=== PATIENT | female | born 1990 | race Caucasian/White ===

== ENCOUNTER 2017-02-19 10:14 | Outpatient (CLI) | payer MEDICAID, OTHER | END 2017-02-19 10:15 | disposition home or self-care (01) | DX: K92.1 Melena (principal); R10.84 Generalized abdominal pain ==

== ENCOUNTER 2017-04-26 11:09 | Outpatient (CLI) | payer OTHER ==
[2017-04-26 13:58] LABS: BILIRUBIN,DIRECT 0.1 mg/dL (0.1-0.5); TOTAL PROTEIN 7.9 g/dL (6.7-8.2)
== END 2017-04-26 11:10 | disposition home or self-care (01) ==
LOC: LAB.N 11:09
PROVIDERS: ATTEND Physician Assistant Medical
DX: R17 Unspecified jaundice (principal)
CPT/HCPCS: 36415; 80076

== ENCOUNTER 2017-11-15 08:00 | Outpatient (CLI) | payer OTHER | END 2017-11-15 23:59 | disposition home or self-care (01) | LOC: LAB.R 08:00 | PROVIDERS: ATTEND Registered Nurse | DX: Z11.3 Encounter for screening for infections with a predominantly sexual mode of transmission (principal) | CPT/HCPCS: 87491; 87591 ==

== ENCOUNTER 2017-12-29 09:48 | Outpatient (CLI) | payer OTHER ==
[2017-12-29 10:07] LABS: BASOPHILS % (AUTO) 0.2 %; EOSINOPHILS # (AUTO) 0.1 10^3/uL (0.0-0.7); EOSINOPHILS % (AUTO) 0.9 %; HGB - HEMOGLOBIN 13.2 g/dL (12.0-16.0); LYMPHOCYTES # (AUTO) 1.9 10^3/uL (1.5-3.5); LYMPHOCYTES % (AUTO) 29.7 %; MEAN CORPUSCULAR HEMOGLOBIN 31.1 pg (27.0-31.0); MEAN CORPUSCULAR HGB CONC 35.2 g/dL (32.0-36.0); MEAN CORPUSCULAR VOLUME 88.2 fL (81.0-99.0); MEAN PLATELET VOLUME 8.1 fL (7.9-10.8); MONOCYTES # (AUTO) 0.3 10^3/uL (0.0-1.0); MONOCYTES % (AUTO) 5.3 %; NEUTROPHILS # (AUTO) 4.2 10^3/uL (1.5-6.6); NEUTROPHILS % (AUTO) 63.9 %; PLT - PLATELET COUNT 204 10^3/uL (130-450); RED BLOOD COUNT 4.26 10^6/uL (4.20-5.40); RED CELL DISTRIBUTION WIDTH 13.4 % (12.0-15.0); WHITE BLOOD COUNT 6.5 x10^3/uL (4.8-10.8)
[2017-12-29 10:24] LABS: CHOL/HDL RATIO 3.7 (<4.4); CHOLESTEROL 150 mg/dL; GLUCOSE 95 mg/dL (70-100); HDL CHOLESTEROL 41 mg/dL; LDL CHOLESTEROL,CALCULATED 75 mg/dL; LDL/HDL RATIO 1.8 (<4.4); VLDL CHOLESTEROL 34 mg/dL
[2017-12-29 10:25] LABS: HB2 TOTAL 14.2 g/dL; HEMOGLOBIN A1C 0.44 g/dL
== END 2017-12-29 09:49 | disposition home or self-care (01) ==
LOC: LAB 09:48
PROVIDERS: ATTEND Registered Nurse
DX: N94.89 Other specified conditions associated with female genital organs and menstrual cycle (principal)
CPT/HCPCS: 36415; 80061; 82947; 83036; 83721; 84443; 85025

== ENCOUNTER 2018-01-10 20:12 | Outpatient (CLI) | payer OTHER ==
--- NOTE | 2018-01-11 12:30 | Ultrasound Report ---
PELVIS ULTRASOUND: 01/10/2018. COMPARISON: No comparison. INDICATIONS: Pelvic and perineal pain. TECHNIQUE: Sonographic evaluation of the pelvis was performed using transabdominal and endovaginal obtained. Transabdominal pelvic ultrasound performed for global evaluation. Real-time scanning performed and static images obtained. FINDINGS: Uterus 9.4 x 5.3 x 4.5 cm. 117 mL Uterus appears normal. There is a small amount of fluid in the cervical canal. Cervix otherwise unremarkable. No free fluid in the pelvis. Right ovary 4.5 x 2.9 x 2.8 cm. 19 mL. Normal appearance. Left ovary 3.9 x 2.0, x 1.8 cm. 7 mL. Normal appearance. IMPRESSION: ESSENTIALLY NEGATIVE PELVIS ULTRASOUND. TD: 01/11/2018 12:29 MTDD
== END 2018-01-10 20:13 | disposition home or self-care (01) ==
LOC: DI 20:12
PROVIDERS: ATTEND Registered Nurse
DX: R10.2 Pelvic and perineal pain (principal)
CPT/HCPCS: 76830; 76856

== ENCOUNTER 2018-01-22 17:19 | Outpatient (CLI) | payer OTHER ==
[2018-01-22 19:08] LABS: PROLACTIN 9.91 ng/mL
[2018-01-22 19:30] LABS: FOLLICLE STIMULATING HORMONE 7.09 mIU/mL
[2018-01-22 19:31] LABS: LUTEINIZING HORMONE 8.19 mIU/mL
[2018-01-23 10:16] LABS: ESTRADIOL 39 pg/mL
[2018-01-24 15:50] LABS: DHEA SULFATE 273 mcg/dL (18-391)
== END 2018-01-22 17:20 | disposition home or self-care (01) ==
LOC: LAB 17:19
PROVIDERS: ATTEND Registered Nurse
DX: N91.4 Secondary oligomenorrhea (principal)
CPT/HCPCS: 36415; 81599; 82627; 82670; 83001; 83002; 84146; 84402; 84403

== ENCOUNTER 2021-06-18 08:00 | Outpatient (CLI) | payer OTHER | END 2021-06-18 23:59 | disposition home or self-care (01) | LOC: LAB.N 08:00 | PROVIDERS: ATTEND Physician Assistant Medical | DX: N30.00 Acute cystitis without hematuria (principal) | CPT/HCPCS: 87086 ==

== ENCOUNTER 2021-06-27 08:00 | Outpatient (CLI) | payer OTHER ==
[2021-06-27 22:43] LABS: BACTERIAL VAGINOSIS DNA NEGATIVE (NEGATIVE); CANDIDA GLABRATA DNA NEGATIVE (NEGATIVE); CANDIDA GROUP DNA NEGATIVE (NEGATIVE); CANDIDA KRUSEI DNA NEGATIVE (NEGATIVE); TRICHOMONAS VAGINALIS DNA NEGATIVE (NEGATIVE)
== END 2021-06-27 23:59 | disposition home or self-care (01) ==
LOC: LAB.N 08:00
PROVIDERS: ATTEND Physician Assistant Medical
DX: N30.00 Acute cystitis without hematuria (principal)
CPT/HCPCS: 87086; 87661; 87801

== ENCOUNTER 2021-06-28 18:40 | Emergency (ER) | payer OTHER ==
[2021-06-28 19:29] LABS: BILIRUBIN,URINE NEGATIVE (NEGATIVE); GLUCOSE, URINE (UA) NEGATIVE (NEGATIVE); KETONES,URINE (UA) NEGATIVE (NEGATIVE); LEUKOCYTE ESTERASE, URINE NEGATIVE (NEGATIVE); NITRITE,URINE NEGATIVE (NEGATIVE); OCCULT BLOOD,URINE NEGATIVE (NEGATIVE); PROTEIN,URINE NEGATIVE (NEGATIVE); UROBILINOGEN,URINE 0.2 (NORMAL) E.U./dL (NORMAL)
[2021-06-28 19:31] LABS: CLARITY,URINE CLEAR (CLEAR); HCG UR QUAL NEGATIVE
--- NOTE | 2021-06-28 19:58 | ED Physician Documentation ---
History of Present Illness - Stated complaint Stated Complaint: UTI SYMPTOMS - Chief complaint Chief Complaint: Fever - Additonal information Additional information: The patient presents with concerns regarding a urinary tract infection. 6 days ago she was seen by her PCP because she was having discomfort with urination. A culture obtained at that time showed that she had an infection with E. coli and she took a 5-day course of Macrobid. However, yesterday evening she developed a low-grade fever and has intermittently felt as though her heart is racing. Additionally she has had a mild right flank pain. She continues to have symp toms consistent with urgency and she contacted her PCP and they called in a prescription for ciprofloxacin. However, she did not start this as in years past she had nausea and vomiting when taking the medication. Review of Systems Constitutional: reports: Fever, Chills, Sweats Cardiac: reports: Palpitations : reports: Dysuria, Frequency, Other (Right flank pain) Musculoskeletal: denies: Neck pain PD PAST MEDICAL HISTORY - Past Medical History Past Medical History: Yes Cardiovascular: None Respiratory: None Neuro: Migraines Endocrine/Autoimmune: None GI: None REVENUE CYCLE ADMINISTRATOR: None : None HEENT: None Psych: None Musculoskeletal: None Derm: None - Past Surgical History Past Surgical History: Yes /REVENUE CYCLE ADMINISTRATOR: section - Present Medications Home Medications: Ambulatory Orders Medication Instructions Recorded Confirmed Amox/Clav 875/125 [Augmentin 1 tablet PO Q12H 10 Days #20 tablet 06/28/21 875/125 Tab] - Allergies Allergies/Adverse Reactions: Allergies Allergy/AdvReac Type Severity Reaction Status Date / Time No Known Drug Allergies Allergy Verified 06/28/21 18:50 - Social History Does the pt smoke?: No Smoking Status: Never smoker Does the pt drink ETOH?: No Does the pt have substance abuse?: No - Immunizations Immunizations are current?: Yes PD ED PE NORMAL - General General: No acute distress - HEENT HEENT: PERRL - Neck Neck: Supple, no meningeal sign - Cardiac Cardiac: RRR, Other (Tachycardic) - Respiratory Respiratory: No respiratory distress, Clear bilaterally - Abdomen Abdomen: Normal bowel sounds, Soft, Non tender, Non distended, No organomegaly - Female Female : Deferred - Back Back: No CVA TTP - Derm Derm: Normal color, Warm and dry, No rash - Extremities Extremities: No deformity, Normal ROM s pain - Psych Psych: Normal mood Results - Vitals Vitals: Vital Signs - 24 hr 06/28/21 06/28/21 06/28/21 18:50 20:00 21:32 Temperature 38.4 C H Heart Rate 138 H 118 H 108 H Respiratory 20 20 14 Rate Blood Pressure 166/97 H 144/100 H 157/96 H O2 Saturation 100 100 100 06/28/21 06/28/21 06/28/21 22:43 22:50 23:06 Temperature 37.3 C Heart Rate 108 H 98 Respiratory 16 16 15 Rate Blood Pressure 152/93 H 134/98 H O2 Saturation 97 99 Oxygen O2 Source Room air - Labs Labs: Laboratory Tests 06/28/21 06/28/21 06/28/21 19:00 19:48 19:48 WBC 4.0 L RBC 4.37 Hgb 13.5 Hct 38.4 MCV 87.9 MCH 30.9 MCHC 35.2 RDW 12.3 Plt Count 165 MPV 10.3 Neut # (Auto) 2.7 Lymph # (Auto) 0.9 L [place] # (Auto) 0.4 Eos # (Auto) 0.0 Baso # (Auto) 0.0 Absolute Nucleated RBC 0.00 Nucleated RBC % 0.0 Sodium 134 L Potassium 3.7 Chloride 99 L Carbon Dioxide 25 Anion Gap 10.0 BUN 11 Creatinine 1.2 H Estimated GFR (MDRD) 52 L Glucose 116 H Lactic Acid Calcium 9.0 Total Bilirubin 1.2 H AST 30 ALT 37 Alkaline Phosphatase 63 Total Protein 8.1 Albumin 4.3 Globulin 3.8 Albumin/Globulin Ratio 1.1 Urine Color YELLOW Urine Clarity CLEAR Urine pH 7.0 Ur Specific [place] <=1.005 Urine Protein NEGATIVE Urine Glucose (UA) NEGATIVE Urine Ketones NEGATIVE Urine Occult Blood NEGATIVE Urine Nitrite NEGATIVE Urine Bilirubin NEGATIVE Urine Urobilinogen 0.2 (NORMAL) Ur Leukocyte Esterase NEGATIVE Ur Microscopic Review NOT INDICATED Urine Culture Comments NOT INDICATED Urine HCG, Qual NEGATIVE 06/28/21 19:52 WBC RBC Hgb Hct MCV MCH MCHC RDW Plt Count MPV Neut # (Auto) Lymph # (Auto) [place] # (Auto) Eos # (Auto) Baso # (Auto) Absolute Nucleated RBC Nucleated RBC % Sodium Potassium Chloride Carbon Dioxide Anion Gap BUN Creatinine Estimated GFR (MDRD) Glucose Lactic Acid 1.3 Calcium Total Bilirubin AST ALT Alkaline Phosphatase Total Protein Albumin Globulin Albumin/Globulin Ratio Urine Color Urine Clarity Urine pH Ur Specific [place] Urine Protein Urine Glucose (UA) Urine Ketones Urine Occult Blood Urine Nitrite Urine Bilirubin Urine Urobilinogen Ur Leukocyte Esterase Ur Microscopic Review Urine Culture Comments Urine HCG, Qual PD MEDICAL DECISION MAKING - ED course Complexity details: reviewed results, re-evaluated patient, considered differential, d/w patient ED course: The patient's history is consistent with pyelonephritis. She was treated in the emergency department with IV fluids and acetaminophen with improvement in her symptoms.The results of her urine analysis are likely skewed by her recent antibiotic use. Given her intolerance for ciprofloxacin, she was treated in the emergency department with ceftriaxone and was provided a prescription for Augmentin. We reviewed the appropriate use, risks and side effects of these medications. She was encouraged to drink plenty of fluids and alternate OTC antipyretics and analgesics. Additionally, she is to have close follow-up with her PCP and was encouraged to call or return here if her symptoms worsen or if new symptoms were to develop. I did suggest that before she fills the prescription she speak with her PCP and find out if they have sensitivities on the recent urine culture that was done. Unfortunately, I am not able to access these results. Departure - Departure Disposition: 01 Home, Self Care Clinical Impression: Pyelonephritis Condition: Stable Instructions: ED Kidney Infec Female Prescriptions: Amox/Clav 875/125 [Augmentin 875/125 Tab] 1 tablet PO Q12H 10 Days #20 tablet Discharge Date/Time: 06/28/21 23:07
[2021-06-28] MEDS ORDERED: ACETAMINOPHEN 325 MG TABLET PO STA (20:02)
[2021-06-28 20:09] LABS: BASOPHILS % (AUTO) 0.2 %; HCT - HEMATOCRIT 38.4 % (37.0-47.0); HGB - HEMOGLOBIN 13.5 g/dL (12.0-16.0); LYMPHOCYTES # (AUTO) 0.9 10^3/uL (1.5-3.5); LYMPHOCYTES % (AUTO) 21.3 %; MEAN CORPUSCULAR HEMOGLOBIN 30.9 pg (27.0-31.0); MEAN CORPUSCULAR HGB CONC 35.2 g/dL (32.0-36.0); MEAN CORPUSCULAR VOLUME 87.9 fL (81.0-99.0); MEAN PLATELET VOLUME 10.3 fL (7.9-10.8); MONOCYTES # (AUTO) 0.4 10^3/uL (0.0-1.0); MONOCYTES % (AUTO) 10.2 %; NEUTROPHILS # (AUTO) 2.7 10^3/uL (1.5-6.6); NEUTROPHILS % (AUTO) 67.8 %; PLT - PLATELET COUNT 165 10^3/uL (130-450); RED BLOOD COUNT 4.37 10^6/uL (4.20-5.40); RED CELL DISTRIBUTION WIDTH 12.3 % (12.0-15.0)
[2021-06-28 20:13] LABS: ALBUMIN 4.3 g/dL (3.2-5.5); ALBUMIN/GLOBULIN RATIO 1.1 (1.0-2.2); BILIRUBIN,TOTAL 1.2 mg/dL (0.2-1.0); CREATININE 1.2 mg/dL (0.4-1.0); POTASSIUM 3.7 mmol/L (3.5-5.0); TOTAL PROTEIN 8.1 g/dL (6.7-8.2)
[2021-06-28] MEDS ORDERED: cefTRIAXone 1 GM VIAL IM STA (22:35)
[2021-06-28] MEDS ORDERED: LIDOCAINE 1% 2 ML VIAL MC ONE (22:35)
[2021-06-28 23:07] VITALS: BP 134/98
== END 2021-06-28 23:07 | disposition home or self-care (01) ==
LOC: ED 18:40
DX: N12 Tubulo-interstitial nephritis, not specified as acute or chronic (principal); R00.0 Tachycardia, unspecified
CPT/HCPCS: 36415; 80053; 81003; 81025; 83605; 85025; 87040; 96372; 99283; 99284; A9270; 81001; 87086

== ENCOUNTER 2022-05-20 08:00 | Outpatient (CLI) | payer OTHER | END 2022-05-20 23:59 | disposition home or self-care (01) | LOC: LAB.N 08:00 | PROVIDERS: ATTEND Nurse Practitioner | DX: N39.0 Urinary tract infection, site not specified (principal) | CPT/HCPCS: 87086; 87181 ==

== ENCOUNTER 2024-01-24 16:15 | Outpatient (CLI) | payer OTHER ==
[2024-01-24 20:40] LABS: BASOPHILS % (AUTO) 0.1 %; EOSINOPHILS % (AUTO) 0.3 %; HCT - HEMATOCRIT 35.9 % (37.0-47.0); HGB - HEMOGLOBIN 12.2 g/dL (12.0-16.0); LYMPHOCYTES % (AUTO) 39.1 %; MEAN CORPUSCULAR HEMOGLOBIN 30.6 pg (27.0-31.0); MEAN PLATELET VOLUME 10.6 fL (7.9-10.8); MONOCYTES # (AUTO) 0.4 10^3/uL (0.0-1.0); MONOCYTES % (AUTO) 5.3 %; NEUTROPHILS # (AUTO) 4.3 10^3/uL (1.5-6.6); NEUTROPHILS % (AUTO) 55.1 %; PLT - PLATELET COUNT 270 10^3/uL (130-450); RED BLOOD COUNT 3.99 10^6/uL (4.20-5.40); RED CELL DISTRIBUTION WIDTH 12.8 % (12.0-15.0); WHITE BLOOD COUNT 7.7 x10^3/uL (4.8-10.8)
[2024-01-24 21:18] LABS: CALCIUM 9.6 mg/dL (8.5-10.3); CREATININE 0.7 mg/dL (0.6-1.3); POTASSIUM 3.6 mmol/L (3.5-4.5)
== END 2024-01-24 16:30 | disposition home or self-care (01) ==
LOC: LAB.N 16:15
PROVIDERS: ATTEND Nurse Practitioner
DX: O46.90 Antepartum hemorrhage, unspecified, unspecified trimester (principal)
CPT/HCPCS: 36415; 80048; 84702; 85025; 86900; 86901; 87086; 87181